=== PATIENT | male | born 1985 | race Caucasian/White ===

== ENCOUNTER 2016-05-22 22:57 | Emergency (ER) | payer MEDICARE, OTHER ==
--- OUTSIDE RECORDS SUMMARY | 2016-05-23 00:33 | XMS REPORT | Continuity of Care Document ---
:1985 Demographics Phone Unavailable Preferred Language Unknown Marital Status Unknown Tenriism Affiliation Unknown Race Unknown Ethnic Group Unknown Author Organization [facility] ([facility]) [place] [address] Phone [phone] Care Team Providers Name Role Phone Unavailable Primary Care Provider Unavailable Source Comments This disclosure is being made pursuant to the Care Everywhere program, applicable federal and state laws, and may not contain all informaitonavailable regarding this patient.[facility] ([facility]) Active Allergies and Adverse Reactions Not on File Current Medications Not on file Active Problems Not on file Social History Tobacco Use Types Packs/Day Years Used Date Never Assessed Plan of Care Health Maintenance Due Date Last Done Comments Hepatitis B Vaccine (1 of 3 - Primary Series) 1985 Tdap Vaccine 09/03/1995 Lipid Disorder Screening 2002 MMR Vaccine 2002 Td Vaccine 2002 Varicella Vaccine (1 of 2 - Adult - No Evidence of 2002 Immunity) Influenza Vaccine: Seasonal (#1) 10/19/2015 Results from Last 3 Months Not on file
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
[2016-05-23 00:49] VITALS: BP 160/98
== END 2016-05-23 00:39 | disposition home or self-care (01) ==
LOC: ER 22:57
DX: S00.83XA Contusion of other part of head, initial encounter (principal); Z87.891 Personal history of nicotine dependence; Y04.2XXA Assault by strike against or bumped into by another person, initial encounter; Y92.099 Unspecified place in other non-institutional residence as the place of occurrence of the external cause